=== PATIENT | female | born 1955 | race Two or more races ===

== ENCOUNTER 2018-08-12 21:51 | Emergency (ER) | payer BC, OTHER ==
[2018-08-12] MEDS ORDERED: SODIUM CHLORIDE 0.9% 500 ML 500 ML IV STA (22:15)
[2018-08-12] MEDS ORDERED: ONDANSETRON 4 MG/2 ML VIAL IVP STA ×2 (22:15→22:20)
[2018-08-12] MEDS ORDERED: MORPHINE SULFATE 4 MG/ML SYRINGE IV STA (22:15)
--- NOTE | 2018-08-12 22:20 | ED ---
General Adult HPI - General Source: patient, family, EMS, RN notes reviewed Mode of arrival: EMS Limitations: no limitations <Kevon Hernandes - Last Filed: 08/13/18 00:32> <Mami Lora - Last Filed: 08/13/18 06:26> - General Chief complaint: Neck Pain/Injury Stated complaint: nausea vomiting Time Seen by Provider: 08/12/18 22:05 - History of Present Illness Initial comments: 63-year-old female with a past medical history of hyperlipidemia who takes baby aspirin daily presents to the emergency department for a chief complaint of neck pain and vomiting 1 hour. Patient states this was a sudden onset of neck pain followed by several episodes of vomiting. This started around 9 PM this evening which is about one hour prior to arrival. Patient also admits to headache. Patient states she did have mild chest pain denies chest pain at this time. Patient denies abdominal pain. Denies hitting her head. Patient has no other complaints at this time including shortness of breath, chest pain, abdominal pain, or visual changes. (Kevon Hernandes) - Related Data Allergies Allergy/AdvReac Type Severity Reaction Status Date / Time aripiprazole [From Abilify] Allergy Unknown Verified 08/12/18 22:36 Review of Systems ROS Other: All systems not noted in ROS Statement are negative. <Kevon Hrenandes - Last Filed: 08/13/18 00:32> ROS Other: All systems not noted in ROS Statement are negative. <Mami Lora P - Last Filed: 08/13/18 06:26> ROS Statement: Those systems with pertinent positive or pertinent negative responses have been documented in the HPI. Past Medical History Past Medical History: Hyperlipidemia History of Any Multi-Drug Resistant Organisms: None Reported Past Surgical History: Cholecystectomy, Hysterectomy Past Psychological History: No Psychological Hx Reported Smoking Status: Never smoker Past Alcohol Use History: None Reported Past Drug Use History: None Reported <Kevon Hernandes - Last Filed: 08/13/18 00:32> General Exam Limitations: no limitations General appearance: alert (Patient does appear in pain.) Head exam: Present: atraumatic, normocephalic, normal inspection Eye exam: Present: normal appearance, PERRL, EOMI. Absent: scleral icterus, conjunctival injection, periorbital swelling ENT exam: Present: normal exam, normal oropharynx, mucous membranes moist, TM's normal bilaterally (Negative hemotympanum), normal external ear exam Neck exam: Present: normal inspection, full ROM. Absent: tenderness, meningismus, lymphadenopathy Respiratory exam: Present: normal lung sounds bilaterally. Absent: respiratory distress, wheezes, rales, rhonchi, stridor Cardiovascular Exam: Present: regular rate, normal rhythm, normal heart sounds. Absent: systolic murmur, diastolic murmur, rubs, gallop, clicks Neurological exam: Present: alert, oriented X3, CN II-XII intact Expanded Patient oriented to: Present: person, place, time Speech: Present: fluid speech Cranial nerves: EOM's Intact: Normal, Tongue Deviation: Normal, Nystagmus: Nor mal, Facial Sensation: Normal Upper motor neuron: Pronator Drift: Normal Sensory exam: Upper Extremity Light Touch: Normal, Upper Extremity Pin Prick: Normal, Lower Extremity Light Touch: Normal, Lower Extremity Pin Prick: Normal Eye Response: (4) open spontaneously Motor Response: (6) obeys commands Verbal Response: (5) oriented Mary Total: 15 Psychiatric exam: Present: normal affect, normal mood <Kevon Hernandes - Last Filed: 08/13/18 00:32> Course <Kevon Hernandes - Last Filed: 08/13/18 00:32> Vital Signs 08/12/18 08/12/18 08/13/18 21:53 23:54 00:00 Temperature 97 F L Pulse Rate 72 87 90 Respiratory 18 16 15 Rate Blood Pressure 136/69 138/74 O2 Sat by Pulse 95 96 98 Oximetry 08/13/18 08/13/18 00:10 00:20 Temperature 98.0 F Pulse Rate 89 92 Respiratory 17 16 Rate Blood Pressure 136/78 144/76 O2 Sat by Pulse 97 Oximetry - Reevaluation(s) Reevaluation #1: 08/12/18 23:49 Dr. Lora spoke with Dr donald of [facility], would like neurointerventionalist consult on board prior to transfer. Already has him paged (Kevon Hernandes) EKG Findings - EKG Comments: EKG Findings:: Sinus rhythm, ventricular rate 82, ME interval 222, QTC 493, no evidence of ST elevation or depression <Kevon Hernandes P - Last Filed: 08/13/18 00:32> Medical Decision Making - Lab Data Result diagrams: 08/12/18 22:34 08/12/18 22:34 <Kevon Hernandes P - Last Filed: 08/13/18 00:32> - Lab Data Result diagrams: 08/12/18 22:34 08/12/18 22:34 <Mami Lora P - Last Filed: 08/13/18 06:26> - Medical Decision Making 63-year-old female presents for sudden onset neck pain with vomiting. Patient does admit to headache as well. Denies trauma. No focal neuro deficits on arrival. Patient had mild chest pain earlier so chest x-ray one view portable was obtained immediately on arrival to view aortic diameter. Given patient's neck pain chest CTA was also obtained that showed no evidence of large central pulmonary embolism. Brain CT did show extensive subarachnoid blood in the basal cisterns and suprasellar cisterns which may be secondary to ruptured aneurysm. Code stroke was immediately called. Immediately contacted neuro intervent ionalist. Dr. Ruiz recommends [facility] who will accept this admission. (Kevon Hernandes) I personally saw and evaluated this patient. Patient is awake alert oriented si tting up in bed complaining of headache, neck pain nausea and vomiting. I did advise the patient that her CT findings are concerning for subarachnoid hemorrhage. I discussed patient care with the neuro interventional S Dr. Saenz who recommends the patient be transferred to [facility] for further management and possible intervention. Blood pressure goals including a systolic less than 140 were discussed patient did maintain a systolic less than 140 however carting was ordered for transport should her blood pressure increased. Patient was treated with Zofran as well as Phenergan for her nausea. Next line patient care was then discussed with neurosurgical mid-level provider at [facility] who is aware of the patient's history, physical exam imaging findings and vital signs. Agrees with workup as a land and plan for transfer. Patient be transferred directly to the intensive care unit bed 501 at [facility] for further evaluation by neuro intervention. Patient remained awake alert oriented at the time of discharge number emergency department. Her blood pressure remained within goal. Critical Care time 45 minutes Critical care time was exclusive of separately billable procedures and treating other patients and teaching time. Critical care was necessary to treat or prevent imminent or life-threatening deterioration. Critical care was time spent personally by me on the following activities: development of treatment plan with patient or surrogate, discussions with consultants, discussions with primary provider, evaluation of patient's response to treatment, examination of patient, obtaining history from patient or surrogate, ordering and performing treatments and interventions, ordering and review of laboratory studies, ordering and review of radiographic studies, pulse oximetry, re-evaluation of patient's condition and review of old charts. (Mami Pritchett) - Lab Data Lab Results 08/12/18 08/12/18 08/12/18 Range/Units 22:34 22:34 22:34 WBC 12.2 H (3.8-10.6) k/uL RBC 4.74 (3.80-5.40) m/uL Hgb 12.7 (11.4-16.0) gm/dL Hct 40.5 (34.0-46.0) % MCV 85.5 (80.0-100.0) fL MCH 26.9 (25.0-35.0) pg MCHC 31.4 (31.0-37.0) g/dL RDW 14.1 (11.5-15.5) % Plt Count 266 (150-450) k/uL Neutrophils % 68 % Lymphocytes % 24 % Monocytes % 4 % Eosinophils % 2 % Basophils % 1 % Neutrophils # 8.3 H (1.3-7.7) k/uL Lymphocytes # 2.9 (1.0-4.8) k/uL Monocytes # 0.5 (0-1.0) k/uL Eosinophils # 0.3 (0-0.7) k/uL Basophils # 0.1 (0-0.2) k/uL PT 9.7 (9.0-12.0) sec INR 0.9 (<1.2) APTT 22.1 (22.0-30.0) sec Sodium 142 (137-145) mmol/L Potassium 4.0 (3.5-5.1) mmol/L Chloride 108 H (98-107) mmol/L Carbon Dioxide 26 (22-30) mmol/L Anion Gap 8 mmol/L BUN 15 (7-17) mg/dL Creatinine 0.83 (0.52-1.04) mg/dL Est GFR (CKD-EPI)AfAm 88 (>60 ml/min/1.73 sqM) Est GFR (CKD-EPI)NonAf 76 (>60 ml/min/1.73 sqM) Glucose 139 H (74-99) mg/dL Calcium 9.4 (8.4-10.2) mg/dL Magnesium 2.0 (1.6-2.3) mg/dL Total Bilirubin 0.3 (0.2-1.3) mg/dL AST 28 (14-36) U/L ALT 44 (9-52) U/L Alkaline Phosphatase 101 (38-126) U/L Troponin I (0.000-0.034) ng/mL Total Protein 7.0 (6.3-8.2) g/dL Albumin 3.9 (3.5-5.0) g/dL 08/12/18 Range/Units 22:34 WBC (3.8-10.6) k/uL RBC (3.80-5.40) m/uL Hgb (11.4-16.0) gm/dL Hct (34.0-46.0) % MCV (80.0-100.0) fL MCH (25.0-35.0) pg MCHC (31.0-37.0) g/dL RDW (11.5-15.5) % Plt Count (150-450) k/uL Neutrophils % % Lymphocytes % % Monocytes % % Eosinophils % % Basophils % % Neutrophils # (1.3-7.7) k/uL Lymphocytes # (1.0-4.8) k/uL Monocytes # (0-1.0) k/uL Eosinophils # (0-0.7) k/uL Basophils # (0-0.2) k/uL PT (9.0-12.0) sec INR (<1.2) APTT (22.0-30.0) sec Sodium (137-145) mmol/L Potassium (3.5-5.1) mmol/L Chloride (98-107) mmol/L Carbon Dioxide (22-30) mmol/L Anion Gap mmol/L BUN (7-17) mg/dL Creatinine (0.52-1.04) mg/dL Est GFR (CKD-EPI)AfAm (>60 ml/min/1.73 sqM) Est GFR (CKD-EPI)NonAf (>60 ml/min/1.73 sqM) Glucose (74-99) mg/dL Calcium (8.4-10.2) mg/dL Magnesium (1.6-2.3) mg/dL Total Bilirubin (0.2-1.3) mg/dL AST (14-36) U/L ALT (9-52) U/L Alkaline Phosphatase (38-126) U/L Troponin I <0.012 (0.000-0.034) ng/mL Total Protein (6.3-8.2) g/dL Albumin (3.5-5.0) g/dL Critical Care Time Critical Care Time: Yes Total Critical Care Time: 45 <Mami Lora P - Last Filed: 08/13/18 06:26> Disposition Time of Disposition: 00:05 - Out of Hospital Transfer - Req. Specs Out of Hospital Transfer - Requested Specifics: Other Emergency Center ([facility]) <Kevon Hernandes P - Last Filed: 08/13/18 00:32> <Mami Lora P - Last Filed: 08/13/18 06:26> Clinical Impression: Subarachnoid hemorrhage Disposition: OTHER INSTITUTION NOT DEFINED Condition: Critical Referrals: Mary Lou Dietz MD [Primary Care Provider] - 1-2 days
--- NOTE | 2018-08-12 22:41 | XR ---
EXAM: XR Chest, 1 View CLINICAL HISTORY: ITS.REASON XR Reason: chest pain TECHNIQUE: Frontal view of the chest. COMPARISON: None. FINDINGS: Lungs: Hypoinflated lungs with bibasilar opacities which most likely represent atelectasis. Pleural space: Unremarkable. No pneumothorax. Heart: Unremarkable. No cardiomegaly. Mediastinum: Unremarkable. Bones/joints: Degenerative change in the shoulders. IMPRESSION: Hypoinflated lungs with bibasilar opacities which most likely represent atelectasis. Infection is not entirely excluded.
[2018-08-12 22:48] LABS: Basophils # (A) 0.1 k/uL (0-0.2); Basophils % (A) 1 %; Eosinophils # (A) 0.3 k/uL (0-0.7); Eosinophils % (A) 2 %; HCT 40.5 % (34.0-46.0); HGB 12.7 gm/dL (11.4-16.0); Lymphocytes # (A) 2.9 k/uL (1.0-4.8); Lymphocytes % (A) 24 %; MCH 26.9 pg (25.0-35.0); MCHC 31.4 g/dL (31.0-37.0); MCV 85.5 fL (80.0-100.0); Mean Platelet Volume 6.5; Monocytes # (A) 0.5 k/uL (0-1.0); Monocytes % (A) 4 %; Neutrophils # (A) 8.3 k/uL (1.3-7.7); Neutrophils % (A) 68 %; Platelet Count 266 k/uL (150-450); RBC 4.74 m/uL (3.80-5.40); RDW 14.1 % (11.5-15.5); WBC 12.2 k/uL (3.8-10.6)
[2018-08-12 22:57] LABS: Albumin 3.9 g/dL (3.5-5.0); Calcium 9.4 mg/dL (8.4-10.2); Total Bilirubin 0.3 mg/dL (0.2-1.3)
[2018-08-12 22:58] LABS: INR 0.9 (<1.2); Partial Thromboplastin Time 22.1 sec (22.0-30.0); Prothrombin Time 9.7 sec (9.0-12.0)
--- NOTE | 2018-08-12 23:32 | CT ---
EXAM: CT Angiography Chest With Intravenous Contrast CLINICAL HISTORY: ITS.REASON CT Reason: Pain TECHNIQUE: Axial computed tomographic angiography images of the chest with intravenous contrast using pulmonary embolism protocol. CTDI is 18.6 mGy and DLP is 581.2 mGy-cm. This CT exam was performed using one or more of the following dose reduction techniques: automated exposure control, adjustment of the mA and/or kV according to patient size, and/or use of iterative reconstruction technique. MIP reconstructed images were created and reviewed. COMPARISON: Chest radiograph 08/12/2018. FINDINGS: Pulmonary arteries: Suboptimal bolus timing without evidence of large central pulmonary embolism. Aorta: No acute findings. No thoracic aortic aneurysm. Lungs: Mild atelectasis in the lungs. No mass. Pleural space: Unremarkable. No significant effusion. No pneumothorax. Heart: Mild cardiomegaly. No significant pericardial effusion. No evidence of RV dysfunction. Mediastinum: Mild hiatal hernia. Bones/joints: No acute fracture. No dislocation. Soft tissues: Unremarkable. Lymph nodes: Unremarkable. No enlarged lymph nodes. Liver: Hepatic steatosis. IMPRESSION: 1. Suboptimal bolus timing without evidence of large central pulmonary embolism. 2. Hepatic steatosis.
[2018-08-12] MEDS ORDERED: niCARdipine 20 MG in SODIUM CHLORIDE 0.9% 192 ML IV ONE (23:42)
--- NOTE | 2018-08-12 23:47 | CT ---
EXAM: CT Head Without Intravenous Contrast CLINICAL HISTORY: ITS.REASON CT Reason: Pain TECHNIQUE: Axial computed tomography images of the head/brain without intravenous contrast. CTDI is 79.3 mGy and DLP is 1683 mGy-cm. This CT exam was performed using one or more of the following dose reduction techniques: automated exposure control, adjustment of the mA and/or kV according to patient size, and/or use of iterative reconstruction technique. COMPARISON: None. FINDINGS: Brain: Extensive subarachnoid blood is seen in the basilar cisterns and suprasellar cistern. No significant white matter disease. Ventricles: Prominence of the ventricular system without definite intraventricular hemorrhage identified. Bones/joints: Unremarkable. No acute fracture. Soft tissues: Unremarkable. Sinuses: Mild mucosal thickening in the right sphenoid sinus. Mastoid air cells: Trace right mastoid tip effusion. IMPRESSION: Extensive subarachnoid blood is seen in the basilar cisterns and suprasellar cistern. This may be secondary to ruptured aneurysm. Recommend evaluation with CT angiogram. Additionally, neuroendovascular surgery consultation is recommended. <MYCVCSECTION> Critical Value Communications 08/12/18 23:39 Call Doctor Regarding Intracranial Hemorrhage, called Dr. Kevon Galloway on 08/12 23:39 (-04:00)
--- NOTE | 2018-08-12 23:55 | CT ---
EXAM: CT Angiography Head With Intravenous Contrast CLINICAL HISTORY: ITS.REASON CT Reason: Pain TECHNIQUE: Axial computed tomographic angiography images of the head with intravenous contrast using CT angiography protocol. CTDI is 15.4 mGy and DLP is 633.1 mGy-cm. This CT exam was performed using one or more of the following dose reduction techniques: automated exposure control, adjustment of the mA and/or kV according to patient size, and/or use of iterative reconstruction technique. MIP reconstructed images were created and reviewed. COMPARISON: None. FINDINGS: Right internal carotid artery: No acute findings. Intracranial segment is patent with no significant stenosis. No aneurysm. Right anterior cerebral artery: Unremarkable. No occlusion or significant stenosis. No aneurysm. Right middle cerebral artery: Unremarkable. No occlusion or significant stenosis. No aneurysm. Right posterior cerebral artery: Unremarkable. No occlusion or significant stenosis. No aneurysm. Right vertebral artery: Unremarkable as visualized. Left internal carotid artery: No acute findings. Intracranial segment is patent with no significant stenosis. No aneurysm. Left anterior cerebral artery: Unremarkable. No occlusion or significant stenosis. No aneurysm. Left middle cerebral artery: Unremarkable. No occlusion or significant stenosis. No aneurysm. Left posterior cerebral artery: Unremarkable. No occlusion or significant stenosis. No aneurysm. Left vertebral artery: Unremarkable as visualized. Basilar artery: Unremarkable. No occlusion or significant stenosis. No aneurysm. IMPRESSION: No intracranial aneurysm, vascular malformation, or hemodynamically significant stenosis. Neuroendovascular surgery consultation is recommended for consideration of conventional cerebral angiogram. EXAM: CT Angiography Neck With Intravenous Contrast CLINICAL HISTORY: ITS.REASON CT Reason: Pain TECHNIQUE: Axial computed tomographic angiography images of the neck with intravenous contrast using CT angiography protocol. CTDI is 15.4 mGy and DLP is 633.1 mGy-cm. This CT exam was performed using one or more of the following dose reduction techniques: automated exposure control, adjustment of the mA and/or kV according to patient size, and/or use of iterative reconstruction technique. MIP reconstructed images were created and reviewed. COMPARISON: None. FINDINGS: VASCULATURE: Right common carotid artery: Unremarkable. No significant stenosis. No dissection or occlusion. Right internal carotid artery: Unremarkable. Extracranial segment is patent with no significant stenosis. No dissection or occlusion. Right external carotid artery: Unremarkable. No occlusion. Right vertebral artery: Unremarkable. No significant stenosis. No dissection or occlusion. Left common carotid artery: Unremarkable. No significant stenosis. No dissection or occlusion. Left internal carotid artery: Unremarkable. Extracranial segment is patent with no significant stenosis. No dissection or occlusion. Left external carotid artery: Unremarkable. No occlusion. Left vertebral artery: Unremarkable. No significant stenosis. No dissection or occlusion. NECK: Bones/joints: Degenerative changes seen in the cervical spine. No high-grade spinal canal stenosis. No acute fracture. No dislocation. Soft tissues: Unremarkable as visualized. No mass. CAROTID STENOSIS REFERENCE USING NASCET CRITERIA: % ICA stenosis = (1 - narrowest ICA diameter/diameter of distal cervical ICA) x 100. Mild - <50% stenosis. Moderate - 50-69% stenosis. Severe - 70-94% stenosis. Near occlusion - 95-99% stenosis. Occluded - 100% stenosis. IMPRESSION: No dissection, pseudoaneurysm, or hemodynamically significant stenosis of the carotid or vertebral arteries. <MYCVCSECTION> Critical Value Communications 08/12/18 23:48 Call Doctor Regarding Above results, already called Dr. Kevon Galloway on 08/12 23:48 (-04:00)
[2018-08-13] MEDS ORDERED: PROMETHAZINE INJ 25 MG in SODIUM CHLORIDE 0.9% 50 ML IVPB STA (00:02)
[2018-08-13 00:28] VITALS: BP 144/76; PULSE 92; RESP 16; TEMP 98
== END 2018-08-13 00:20 | disposition short-term general hospital (02) ==
LOC: EC 21:51
DX: I60.9 Nontraumatic subarachnoid hemorrhage, unspecified (principal); R07.9 Chest pain, unspecified; Z88.8 Allergy status to other drugs, medicaments and biological substances; Z79.82 Long term (current) use of aspirin; Z90.49 Acquired absence of other specified parts of digestive tract
CPT/HCPCS: 99291; 96365; 96375 ×3; 36415; 93005; 80053; 83735; 84484; 85025; 85610; 85730; 71045; 70496; 70450; 70498; 71275; J2270; J2550; J2405; Q9967

== ENCOUNTER → 2018-10-15 | Outpatient (CLI) | payer BC ==
--- NOTE | 2018-10-16 16:53 | MR ---
EXAMINATION TYPE: MR angio head wo con DATE OF EXAM: 10/15/2018 COMPARISON: CTA head August 12, 2018 HISTORY: Hydrocephalus, R/O aneurysm, hx of subarachnoid hemorrhage TECHNIQUE: Time of flight images focusing on the [place] were performed without contrast.. 2-D and 3-D postprocessing imaging is performed on the MRI scanner. FINDINGS: There is codominant vertebrobasilar system. Vertebral arteries are patent to basilar juncti on. There is hypoplastic right posterior communicating artery. There is patent left posterior communi cating artery. There is no significant focal stenosis or aneurysmal change in the anterior circulation. Images of th e anterior circulation show patent anterior communicating artery axial image 87. There is no signific ant focal stenosis or aneurysmal change seen. IMPRESSION: No aneurysmal change or significant focal stenosis at level of [place].
--- NOTE | 2018-10-16 16:58 | MR ---
EXAMINATION TYPE: MR brain wo/w con DATE OF EXAM: 10/15/2018 COMPARISON: CT brain August 12, 2018 HISTORY: Hydrocephalus, R/O aneurysm, hx of subarachnoid hemorrhage TECHNIQUE: Multiplanar, multisequence images of the brain and brainstem is performed without and with IV contras t, utilizing 10.5 mL intravenous Gadavist . FINDINGS: Diffusion weighted images demonstrate no evidence of a recent infarct or other diffusion ab normality. There is mild ventricular and sulcal prominence over the bilateral frontal lobes redemons trated. No gross hydrocephalus. Some scattered foci of T2 hyperintensity is seen throughout the white matter bilaterally. Artifact from high right frontal ventricular shunt catheter felt present on MRI. T2 star weighted images show no suspicious intraparenchymal blood product. Midline structures demonstrate normal morphology. The craniocervical junction appears within normal limits. Post contrast images demonstrate no abnormal enhancement. The dural venous sinuses appear pa tent. The visualized sinuses are clear and the globes are intact. Increasing fluid signal right masto id air cells is present. IMPRESSION: 1. There is mild bilateral frontal lobe atrophy and chronic small vessel ischemic change. 2. Increasing fluid signal right mastoid air cells raises concern for developing mastoiditis, correla te clinically. 3. New right-sided high frontal [employer] shunt catheter.
== END | disposition home or self-care (01) ==
LOC: RADMRIMAIN 09:47
PROVIDERS: ATTEND Specialist
DX: G31.9 Degenerative disease of nervous system, unspecified (principal); I67.82 Cerebral ischemia; Z98.2 Presence of cerebrospinal fluid drainage device
CPT/HCPCS: 70544; 70553; A9585